=== PATIENT | female | born 1995 | race Caucasian/White ===

== ENCOUNTER 2019-05-23 09:40 | Emergency (ER) | payer SELFPAY ==
[~2019-05-23 09:40] MED LIST: Sterile Water Irrigation 250 ML BOT ONE
== END 2019-05-23 10:17 | disposition home or self-care (01) ==
LOC: MADERS 09:40
DX: N61.1 Abscess of the breast and nipple (principal); N61.0 Mastitis without abscess; J45.909 Unspecified asthma, uncomplicated; F41.9 Anxiety disorder, unspecified; F17.210 Nicotine dependence, cigarettes, uncomplicated
CPT/HCPCS: 10061